=== PATIENT | female | born 1980 | race Caucasian/White ===

== ENCOUNTER 2024-08-10 10:07 | Emergency (ER) | payer OTHER, SELFPAY ==
--- NOTE | ~2024-08-10 | CT_ITS ---
EXAMINATION: CT abdomen pelvis w con DATE: 08/10/2024 13:44 INDICATION: Epigastric pain TECHNIQUE: Computed tomography (CT) of the abdomen and pelvis was performed with 100 cc Omnipaque 350 intravenous contrast. The dose-length product was 694.85 mGy-cm. Automated exposure control and iter ative reconstruction technique were employed. COMPARISON: None. FINDINGS: There is dependent atelectasis. No significant pleural or pericardial effusion. Heart size normal. There are fluid-filled distended small bowel loops throughout the abdomen, likely ileus or en teritis. Small hypodense irregular shaped 1.3 cm right hepatic lobe mass with peripheral enhancement, most likely benign hemangioma. Gallbladder is present. There are smaller low-density lesions in the liver, too small to characterize. The spleen, pancreas, adrenal glands are unremarkable. Kidneys with in normal limits. No significant hydronephrosis. Gallbladder is present. There is an IUD in the uteru s. No free air or free fluid. No significant vascular abnormality. No lymphadenopathy. Moderate lower lumbar spondylosis. IMPRESSION: 1. Fluid-filled small bowel throughout the abdomen which may reflect ileus or enteritis. 2: Multiple hypodense lesions of the liver, largest measuring up to 1.3 cm, likely benign hemangiomas or cysts in the absence of known malignancy. Reviewed, dictated and finalized at location B. IMPRESSION: 1. Fluid-filled small bowel throughout the abdomen which may reflect ileus or e nteritis. 2: Multiple hypodense lesions of the liver, largest measuring up to 1.3 cm, lik karel benign hemangiomas or cysts in the absence of known malignancy.
[2024-08-10 10:39] VITALS: BP 137/95; PULSE 85; RESP 18; TEMP 36.4; O2SAT 100
[2024-08-10 12:32] VITALS: BP 137/102; PULSE 82; RESP 17; O2SAT 100
--- NOTE | 2024-08-10 12:40 | ED.ABDPAIN ---
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 WAS SEEN AT [facility] June AND WAS PRESCRIBED MAALOX NEEDED. PATIENT DENIES ANY FEVER, CHILLS, NAUSEA, VOMITING, RADIATION OF PAIN. NO HISTORY OF ABDOMINAL SURGERY, HISTORY OF MIGRAINE HEADACHE AND STARTED RECENTLY ON ADDERALL FOR TROUBLE FOCUSING Related Data Allergies Allergy/AdvReac Type Severity Reaction Status Date / Time No Known Allergies Allergy Unverified 08/10/24 10:07 Review of Systems Review of Systems: All systems reviewed & are unremarkable except as noted in HPI and below Exam Narrative: GENERAL APPEARANCE: WELL-DEVELOPED, WELL-NOURISHED SKIN: NORMAL COLOR HEAD: NORMOCEPHALIC, NONTRAUMATIC EYES: CLEAR CONJUNCTIVA ENT: OROPHARYNX NORMAL, EARS NORMAL, NOSE NORMAL NECK: SUPPLE, NONTENDER CHEST AND RESPIRATORY: AIRWAY PATENT, NO RESPIRATORY DISTRESS, NO ACCESSORY MUSCLE USE HEART: REGULAR RATE/RHYTHM ABDOMEN: SOFT, NONTENDER, NO ORGANOMEGALY, QUIET BOWEL SOUNDS VASCULAR: NORMAL PERIPHERAL PULSES, NORMAL CAPILLARY REFILL. MUSCULOSKELETAL: NORMAL RANGE OF MOTION, NONTENDER BACK NEUROLOGIC: ALERT AND ORIENTED ?3, OIL EXTRACTOR IS NORMAL TESTED, NO GROSS MOTOR DEFICIT Course Vital Signs Vital signs: Vital Signs Temperature 36.4 C 08/10/24 10:39 Pulse Rate 85 08/10/24 10:39 Respiratory Rate 18 08/10/24 10:39 Blood Pressure 137/95 H 08/10/24 10:39 Pulse Oximetry 100 08/10/24 10:39 Oxygen Delivery Room Air 08/10/24 10:39 Temperature 36.4 C 08/10/24 10:39 Pulse Rate 80 08/10/24 12:57 Respiratory Rate 20 08/10/24 12:57 Blood Pressure 129/90 08/10/24 12:57 Pulse Oximetry 100 08/10/24 12:57 Oxygen Delivery Room Air 08/10/24 10:39 MDM - Abdominal Pain MDM Narrative Medical decision making narrative: PATIENT PRESENTS WITH EPIGASTRIC PAIN WHICH RESOLVED ON ARRIVAL TO THE VITAL SIGNS STABLE PHYSICAL EXAMINATION IS UNREMARKABLE DIFFERENTIAL DIAGNOSIS INCLUDE GASTRITIS, ESOPHAGITIS, LESS LIKELY PANCREATITIS, CHOLECYSTITIS, ANXIETY RELATED SYMPTOMS, CONSTIPATION, DIARRHEA BLOOD WORKUP TODAY SHOWED NO ACUTE ABNORMALITIES URINALYSIS SHOWED NO EVIDENCE OF INFECTION CT ABDOMEN AND PELVIS WITH IV CONTRAST SHOWED LOT OF FLUID IN THE SMALL BOWEL, MULTIPLE HYPODENSE LESIONS IN THE LIVER HIGH LIKELY HEMANGIOMA MY PLAN TO DISCHARGE PATIENT ON OMEPRAZOLE, AND ON IMODIUM NEEDED REFERRED TO [facility] FOR FURTHER EVALUATION A COPY OF CT SCAN OF THE ABDOMEN AND PELVIS WAS GIVEN TO THE PATIENT PRIOR TO DISCHARGE THE PT WAS DISCHARGED TO HOME.THE PT,S CONDITION UPON DISCHARGE WAS FAIR,EDUCATION WAS PROVIDED TO THE PT IN REFERENCE TO THE FINAL IMPRESSION,DISCHARGE STUDY RESULTS,TREATMENT,PROGNOSIS AND NEED FOR FOLLOW UP . PATIENT IS TELLING ME THAT SHE IS SCHEDULED TO SEE [facility] AUGUST 19 Differential Diagnosis Differential diagnosis: Likely constipation, diverticulitis, gastroenteritis and pancreatitis Medical Records Attestation: I reviewed the patient's medical records. Lab Data Attestation: I reviewed the patient's lab results. 08/10/24 13:01 08/10/24 13:01 Labs: Lab Results
[2024-08-10 12:43] LABS: Add Urine Microscopic? NO; Appearance Urine Clear (Clear); Bilirubin Urine Negative (Negative); Blood Urine Negative (Negative); Color Urine Yellow (Yellow); Glucose Urine UA Negative (Negative); Ketones Urine Negative (Negative); Leukocyte Esterase Ur Negative LEU/UL (Negative); Nitrate Urine Negative (Negative); Protein Urine Negative (Negative); Specific Grav Ur 1.015 (1.001-1.035); Urobilinogen Urine 0.2 mg/dL (<2.0); pH Urine 5.5 (5.0-9.0)
[2024-08-10] MEDS: ONDANSETRON INJ 4 MG/2 ML VIAL IV PUSH (12:54)
[2024-08-10] MEDS: SODIUM CHLORIDE 0.9% IV 1,000 ML 999 ML IV CONT (12:54)
[2024-08-10] MEDS: MORPHINE SULFATE (*CRX) 4 MG/ML INJ IV PUSH (12:55)
[2024-08-10 12:57] VITALS: BP 129/90; PULSE 80; RESP 20; O2SAT 100
[2024-08-10 13:08] LABS: Basophils Percent Auto 0.3 % (0.2-1.2); Eosinophils Absolute Auto 0.1 K/mm3 (0-0.3); Eosinophils Percent Auto 1.8 % (0-4.4); Hematocrit 47.1 % (37.0-47.0); Hemoglobin 15.9 g/dL (12.0-15.0); Immature Granulocyte Absolute 0.02 K/mm3 (0.00-0.031); Immature Granulocyte Percent A 0.3 % (0-0.5); Lymphocytes Absolute Auto 1.13 K/mm3 (0.9-3.2); Lymphocytes Percent Auto 15.3 % (18.3-44.2); Mean Corpuscular HGB Conc 33.8 g/dl (32-36); Mean Corpuscular Hemoglobin 30.8 pg (26-34); Mean Corpuscular Volume 91.1 fl (80-100); Mean Platelet Volume 10.5 fl (7.4-10.4); Monocytes Absolute Auto 0.5 K/mm3 (0.1-0.6); Monocytes Percent Auto 6.5 % (2.6-8.5); Neutrophils Absolute Auto 5.6 K/mm3 (1.3-6.7); Neutrophils Percent Auto 75.8 % (45.5-73.1); Platelet Count Result 215 k/mm3 (150-375); Red Blood Count 5.17 M/mm3 (4.2-5.4); White Blood Count 7.4 K/mm3 (4.5-10.0)
[2024-08-10 13:48] LABS: Alanine Aminotransferase 17 U/L (6-35); Albumin Level 4.4 g/dL (3.5-5.1); Alkaline Phosphatase 52 U/L (38-126); Anion Gap 7 mmol/L (4-12); Aspartate Amino Transferase 27 U/L (14-36); Bilirubin,Total 0.9 mg/dL (0.2-1.3); Blood Urea Nitrogen 14 mg/dL (7-17); Calcium 9.5 mg/dL (8.4-10.2); Carbon Dioxide 29 mmol/L (22-30); Chloride 101 mmol/L (98-107); Estimated CRCL calculation 100 ml/min; Estimated Glomerular Filt Rate > 60; Glucose 109 mg/dL (65-110); Lipase 147 U/L (23-300); Potassium 4.4 mmol/L (3.4-5.0); Sodium 137 mmol/L (137-145)
[2024-08-10 23:40] LABS: Estimated CRCL calculation 81 ml/min; Estimated Glomerular Filt Rate > 60
[2024-08-12 14:27] LABS: BEDSIDEPREGUCG Negative (Negative)
== END 2024-08-10 15:43 | disposition home or self-care (01) ==
PROVIDERS: Emergency Medicine; Emergency Provider Emergency Medicine; PCP Physician Assistant
DX: R10.13 Epigastric pain (principal); R19.7 Diarrhea, unspecified; K76.9 Liver disease, unspecified
CPT/HCPCS: 36415; 74177; 80053; 81003; 81025; 83690; 85025; 96361; 96374; 96375; 99284; J2270; J2405; J7030; Q9967